=== PATIENT | female | born 1990 | race Caucasian/White ===

== ENCOUNTER 2020-01-19 06:30 | Inpatient (IN) | payer BC, SELFPAY ==
[2020-01-19] VITALS (100 sets, daily range): BP systolic 86–155; BP diastolic 53–104; PULSE 55–188; RESP 11–22; TEMP 36.6–37.9; O2SAT 94–100; BMI 28.0
--- NOTE | 2020-01-19 06:30 | LDADM ---
This patient, Janene Calvo, was admitted to Labor/Delivery/Recovery 104 on 01/19/20 at 06:30. Plans for labor, pain management and were discussed with patient. Patient/family oriented to hospital policies and general routines including ID bracelet, bed and alarms, visiting hours, pain management, procedures, bathroom and other care routines, personal items, smoking policy, room service/diet and guest tray routines, infant security routines, and visiting hours. Patient/Family are encouraged to report perceived risks to care and to ask questions if they do not understand what they are told or what they should do. See OBIX for further documentation.
[2020-01-19 07:04] LABS: Basophils Percent Auto 0.4 % (0.2-1.2); Eosinophils Absolute Auto 0.1 K/mm3 (0-0.3); Eosinophils Percent Auto 1.1 % (0-4.4); Hematocrit 39.8 % (37.0-47.0); Hemoglobin 13.4 g/dL (12.0-15.0); Immature Granulocyte Absolute 0.03 K/mm3 (0.00-0.031); Immature Granulocyte Percent A 0.4 % (0-0.5); Lymphocytes Absolute Auto 2.01 K/mm3 (0.9-3.2); Lymphocytes Percent Auto 27.6 % (18.3-44.2); Mean Corpuscular HGB Conc 33.7 g/dl (32-36); Mean Corpuscular Hemoglobin 30.2 pg (26-34); Mean Corpuscular Volume 89.6 fl (80-100); Monocytes Absolute Auto 0.5 K/mm3 (0.1-0.6); Monocytes Percent Auto 7.3 % (2.6-8.5); Neutrophils Absolute Auto 4.6 K/mm3 (1.3-6.7); Neutrophils Percent Auto 63.2 % (45.5-73.1); Platelet Count Result 288 k/mm3 (150-375); Red Blood Count 4.44 M/mm3 (4.2-5.4); Red Cell Distribution Width 13.5 % (11.5-14.5); White Blood Count 7.3 K/mm3 (4.5-10.0)
[2020-01-19] MEDS: LACTATED RINGERS 1,000 ML 999 ML IV CONT ×3 (07:09→09:02)
--- NOTE | 2020-01-19 08:23 | P.PNAN_ITS ---
Anes - Eval Pre Procedure Procedure: labor epidural Operation Date: 01/19/20 09:00 Proposed Procedures p Primary Section - Madhav Leigh MD Date/Time: 01/19/20 08:23 Pre Op Diagnosis: EXTERNAL VERSION Patient Data Age: 29 Gender: F Height: 1.68 m Weight: 79 kg Last Vital Signs Temp 36.8 C 01/19/20 07:00 Pulse 66 01/19/20 08:21 BP 125/81 01/19/20 08:21 Pulse Ox 100 01/19/20 08:22 Allergies Allergy/AdvReac Type Severity Reaction Status Date / Time No Known Allergies Allergy Verified 01/01/20 13:32 Home Medications Medication Instructions Recorded Confirmed Type PNV cmb#95-ferrous fumarate-FA 1 tablet PO DAILY 01/01/20 01/01/20 History [] levothyroxine 100 mcg PO DAILY 01/01/20 01/01/20 History Laboratory Tests 01/19/20 01/19/20 01/19/20 06:58 06:58 06:58 WBC 7.3 K/mm3 K/mm3 (4.5-10.0) RBC 4.44 M/mm3 M/mm3 (4.2-5.4) Hgb 13.4 g/dL g/dL (12.0-15.0) Hct 39.8 % % (37.0-47.0) MCV 89.6 fl fl (80-100) MCH 30.2 pg pg (26-34) MCHC 33.7 g/dl g/dl (32-36) RDW 13.5 % % (11.5-14.5) Plt Count 288 k/mm3 k/mm3 (150-375) MPV 11.0 fl H fl (7.4-10.4) Immature Gran % (Auto) 0.4 % % (0-0.5) Neut % (Auto) 63.2 % % (45.5-73.1) Lymph % (Auto) 27.6 % % (18.3-44.2) [place] % (Auto) 7.3 % % (2.6-8.5) Eos % (Auto) 1.1 % % (0-4.4) Baso % (Auto) 0.4 % % (0.2-1.2) Lymph # (Auto) 2.01 K/mm3 K/mm3 (0.9-3.2) [place] # (Auto) 0.5 K/mm3 K/mm3 (0.1-0.6) Eos # (Auto) 0.1 K/mm3 K/mm3 (0-0.3) Baso # (Auto) 0.0 K/mm3 K/mm3 (0.0-0.1) Abs Immat Gran (auto) 0.03 K/mm3 K/mm3 (0.00-0.031) Absolute Neuts (auto) 4.6 K/mm3 K/mm3 (1.3-6.7) Absolute Nucleated RBC 0.0 K/mm3 K/mm3 (0.0-0.012) Nucleated RBC % 0.0 % % (0.0-0.2) RPR Pending Blood Type O Positive Antibody Screen Negative Patient hx anesthesia problems: none Family hx anesthesia problems: none PMFSH Past Medical History Medical History (Updated 01/19/20 @ 08:25 by Cheryl Harrington CRNA) Hypothyroid Family History Family History Grandparent FH: heart attack Social History Social History Smoking status: Never smoker Substance use: never Spiritual care concerns: No Exam Day of Procedure 01/19/20 08:23 Patient weight: normal Heart: regular rate and rhythm Lungs: normal air movement Airway: Mallampati scale class 1 Neurological: alert and oriented
[2020-01-19] MEDS: TERBUTALINE SULFATE 1 MG/ML VIAL 0.25 MG SUB-Q (08:49)
--- NOTE | 2020-01-19 09:04 | PM.IMHP ---
H&P: HPI History of Present Illness Chief complaint: EXTERNAL VERSION Narrative: 29 y/o at 39 4/7 weeks, known to have breech presentation, here for ECV and possible induction of labor vs primary . GBS neg. otherwise complicated by hypothyroidism. Review of Systems Review of Systems: All systems reviewed & are unremarkable except as noted in HPI and below PMFSH Past Medical History Medical History Hypothyroid Family History Family History Grandparent FH: heart attack Social History Social History Smoking status: Never smoker Substance use: never Spiritual care concerns: No Comments Past OB History: Early SAB, no D&C. Past BRICK TESTER: Menarche at 10 with menses every 5-6 weeks lasting 5 days each. Meds Home Medications and Allergies Home Medications Medication Instructions Recorded Confirmed Type PNV cmb#95-ferrous fumarate-FA 1 tablet PO DAILY 01/01/20 01/01/20 History [] levothyroxine 100 mcg PO DAILY 01/01/20 01/01/20 History Allergies Allergy/AdvReac Type Severity Reaction Status Date / Time No Known Allergies Allergy Verified 01/01/20 13:32 Vital Signs Vital Signs - 24 hr 01/19/20 07:00 01/19/20 07:09 01/19/20 07:25 Temperature 36.8 C Pulse Rate 60 67 Blood Pressure 126/81 132/93 H Pulse Oximetry 01/19/20 07:31 01/19/20 07:46 01/19/20 07:57 Temperature Pulse Rate 67 64 73 Blood Pressure 139/94 H 134/90 149/90 H Pulse Oximetry 100 01/19/20 08:01 01/19/20 08:02 01/19/20 08:05 Temperature Pulse Rate 75 63 Blood Pressure 140/104 H 138/95 H Pulse Oximetry 100 01/19/20 08:07 01/19/20 08:09 01/19/20 08:10 Temperature Pulse Rate 71 62 Blood Pressure 139/95 H 138/81 Pulse Oximetry 100 01/19/20 08:11 01/19/20 08:12 01/19/20 08:13 Temperature Pulse Rate 64 72 Blood Pressure 129/85 124/88 Pulse Oximetry 100 01/19/20 08:16 01/19/20 08:17 01/19/20 08:18 Temperature Pulse Rate 66 67 Blood Pressure 132/78 132/89 Pulse Oximetry 100 01/19/20 08:21 01/19/20 08:22 01/19/20 08:23 Temperature Pulse Rate 66 65 Blood Pressure 125/81 130/79 Pulse Oximetry 100 01/19/20 08:26 01/19/20 08:27 01/19/20 08:28 Temperature Pulse Rate 68 68 Blood Pressure 131/73 129/85 Pulse Oximetry 100 01/19/20 08:31 01/19/20 08:32 01/19/20 08:35 Temperature Pulse Rate 66 63 Blood Pressure 132/86 126/73 Pulse Oximetry 100 01/19/20 08:36 01/19/20 08:37 01/19/20 08:39 Temperature Pulse Rate 61 66 Blood Pressure 130/79 127/63 Pulse Oximetry 100 01/19/20 08:41 01/19/20 08:42 01/19/20 08:43 Temperature Pulse Rate 78 60 Blood Pressure 120/75 124/82 Pulse Oximetry 100 01/19/20 08:46 01/19/20 08:47 01/19/20 08:52 Temperature Pulse Rate 63 Blood Pressure 127/79 Pulse Oximetry 100 100 01/19/20 08:57 01/19/20 09:01 Temperature Pulse Rate 100 Blood Pressure 126/74 Pulse Oximetry 100 100 Exam Const: Orientation/consciousness: patient oriented x3 Other: Well-developed, well-nourished female in no acute distress. Neck: Thyroid: thyroid normal Lymphatic: no lymphadenopathy noted (in neck, axilla or inguinal nodes) Resp: Effort & Inspection: normal respiratory effort Auscultation: clear to auscultation bilaterally Cardio: Rate: regular rate Rhythm: regular rhythm Heart sounds: S1 normal heart sound present and S2 normal heart sound present GI: Other: ABD: Soft, nontender, gravid. Breech presentation. NST reactive. TOCO: no contractions. Imaging: Bedside ultrasound exam by me confirms kandi breech presentation with back on the maternal left. : General: Yes no CVA tenderness Other: Cervix closed. Back/Spine/Pelvis: Back: no CVA tenderness Skin: General s
--- NOTE | 2020-01-19 09:08 | WPDANESEFPP ---
Anes - Eval Final PreProcedure Day of Procedure 01/19/20 09:08 Patient weight: overweight Heart: regular rate and rhythm Lungs: clear to auscultation Airway: Mallampati scale class II Neurological: alert and oriented Last oral intake: >/= 8 hours ASA classification: II Emergent: no Anesthetic plan: proceed Anesthesia type and monitoring: regional epidural and standard monitoring Other findings: Epid for C/S Informed Consent: The patient's anesthetic plan and its attendant risks and benefits were discussed with the patient/family/POA. Questions were solicited and answers provided to the satisfaction of the patient/family/POA.
--- NOTE | 2020-01-19 10:07 | PM.OBPRVD ---
OB - Delivery Note Procedure Delivery date: 01/19/20 Procedure: Procedures Operation Date: 01/19/20 09:00 <No data on this case meets the specified criteria> 1) Attempted external cephalic version under ultrasound guidance 2) Primary low transverse delivery Delivery monitor: external FHT and external uterine Specimen: Yes (cord blood) Estimated blood loss (mL): 715 Anesthesia type: Epidural Disposition: PACU Complications: None Narrative: The patient presented to L&D for scheduled external cephalic version. Epidural was placed. Bedside ultrasound performed by ar confirmed kandi breech presentation with the back on the maternal left. The placenta was anterior, fundal, grade 3. AFV appeared adequate. She received terbutaline 0.25mg IM x 1. ECV was attempted, elevating the breech out of the maternal pelvis and first trying to effect a forward (counterclockwise) somersault, then a reverse (clockwise). No significant movement of the position resulted, and a significant decrease in the FHR was noted on ultrsound. The procedure was terminated and the FHR recovered. She was then taken to the operating room where she was prepared and draped in the usual sterile fashion in dorsal supine position with a leftward tilt. She received cefazolin preoperatively. Epidural anesthesia was found to be adequate. A Pfannenstiel skin incision was made with the scalpel and was carried through to the underlying layer of the fascia. The fascia was incised in the midline and the incision was extended laterally. The fascia was dissected free of the underlying rectus muscles. The rectus muscles were in the midline. The peritoneum was identified, tented up and entered sharply. The peritoneal incision was extended superiorly and inferiorly with good visualization of the bladder. The bladder blade was placed. The vesicouterine peritoneum was identified, tented up and entered sharply. The incision was extended laterally and the bladder flap was developed. The bladder blade was replaced. The uterus was then incised sharply in a transverse fashion along the lower uterine segment. The incision was extended laterally. The infant's breech was delivered atraumatically to the sterile field to the level of the scapulae. The arms were swept across the chest and delivered. The head was gently flexed and easily delivered. A loose nuchal cord was noted, and the 3-vessel cord was noted to be short. The cord was reduced. The nose and mouth were bulb suctioned. After a delay, the cord was clamped and cut. The was handed off the field. Cord blood was collected. The placenta was removed manually and was passed off the field. The uterus was exteriorized and cleared of all clots and debris. The uterine incision was reapproximated using 0 Monocryl in a running, locked fashion. A second, imbricating layer of the same suture was placed. The bladder flap was treated with Hemaderm. Excellent hemostasis resulted as did excellent reapproximation of the normal anatomy. The uterus was returned the abdomen. The pelvis was irrigated copiously with warmed normal saline. Rigorous hemostasis was assured. The fascial layer was reapproximated using 0 Vicryl in a running fashion. The skin was closed with a running, subcuticular stitch of 4 0 Vicryl. Dermaflex was applied externally. Sponge, lap, needle and instrument counts were correct. The patient was taken to the recovery room in stable condition. The went to the nursery in stable condition. I was present and scrubbed the entire procedure. [place] Baby Date of : 01/19/20 Time of : 09:39 Weeks of gestation at delivery: 39 gender: Male Weight (pounds): 6 Weight (ounces): 3 presentation: kandi breech Placenta delivery description: Manual Removal and Normal Configuration cord vessel description: 3 Vessels and Nuchal Cord score one minute: 9 cao
--- NOTE | 2020-01-19 10:14 | PM.OBDSVD ---
DS: Diagnosis Discharge Diagnosis (1) Term : Code(s): Z34.90 - Encounter for supervision of normal , unspecified, unspecified trimester Status: Acute (2) Breech presentation: Code(s): O32.1XX0 - Maternal care for breech presentation, not applicable or unspecified Status: Acute OB - DS: Summary OB Procedures : NST, Ultrasound and External version OB Procedures Intrapartum: low cervical, transverse OB Procedures: : None Peripartum Data Procedures: Procedures Operation Date: 01/19/20 09:00 <No data on this case meets the specified criteria> 1) Attempted external cephalic version under ultrasound guidance. 2) Primary LTCS. DS: Data Data Completed and Pending Labs on day of discharge: Labs from last 24 hours 01/19/20 01/19/20 01/19/20 06:58 06:58 06:58 WBC 7.3 RBC 4.44 Hgb 13.4 Hct 39.8 MCV 89.6 MCH 30.2 MCHC 33.7 RDW 13.5 Plt Count 288 MPV 11.0 H Immature Gran % (Auto) 0.4 Neut % (Auto) 63.2 Lymph % (Auto) 27.6 [place] % (Auto) 7.3 Eos % (Auto) 1.1 Baso % (Auto) 0.4 Lymph # (Auto) 2.01 [place] # (Auto) 0.5 Eos # (Auto) 0.1 Baso # (Auto) 0.0 Abs Immat Gran (auto) 0.03 Absolute Neuts (auto) 4.6 Absolute Nucleated RBC 0.0 Nucleated RBC % 0.0 RPR Pending Blood Type O Positive Antibody Screen Negative Discharge Plan Discharge Attending physician on discharge: Madhav Leigh Consulting providers: Curry Aiken Discharging Clinician: Madhav Leigh Patient Disposition: Home, Self-Care Activity: may shower, may drive after 2 weeks and pelvic rest Diet: regular Wound Care Instructions: incision open to air Discharge Instructions: Education: Mom and Baby Guide Given to: Mother Follow-Up: Call your delivering provider's office for an appointment to be seen in: 4 Weeks Mom and baby should come to the [facility] for the follow-up appointment. Appointment Date/Time: Friday, January 24, 2020 at 11:00 am What to expect at your follow-up visit: Blood Pressure Check Physical Assessment Call [phone] if you are unable to keep your appointment time. BREAST CARE: 1. Wear a snug supportive bra. 2. For engorgement discomfort: Breast Feeding: A. Apply warm moist washcloths B. Express milk as needed to relieve engorgement C. Wear loose clothing 3. For sore nipples: A. Identify correct latch-on B. Apply warm moist washcloths before and after nursing C. Air dry nipples after nursing D. May apply Lansinoh cream to nipples ABDOMINAL INCISION: (if applicable) 1. Allow incision to air dry 2. Do NOT use lotions for powders on your incision 3. When showering, allow soap and water to run over the incision, but do not wash incision EPISIOTOMY/PERINEAL CARE: 1. Change your pad frequently throughout the day 2. You may take sitz baths several times a day (fill your bathtub with warm water and soak for 20 minutes.) Do NOT bathe in the water 3. No tub baths until seen by your physician - You may shower ACTIVITY: 1. Rest as much as possible. 2. Do not exercise or lift anything heavier than your baby (such as laundry or other children.) 3. Avoid stairs or driving as much as possible. 4. Do not put anything into the vagina. No douching, tampons, or sexual activity until seen by physician. NOTIFY PHYSICIAN IF YOU HAVE ANY QUESTIONS OR IF ANY OF THE FOLLOWING SYMPTOMS OCCUR: 1. If your incision becomes red, swollen, or more painful than what you have experienced in the hospital. 2. If your vaginal bleeding becomes foul smelling. 3. If your vaginal bleeding becomes more heavy than a period or if your bleeding changes from pink to bright red. However, you may pass an occasional walnut-sized clot once or twice for the first week po
--- NOTE | 2020-01-19 12:30 | PC.NURSE ---
PT arrived on unit via stretcher accompanied by spouse and and taken to room 285. PT transferred to bed via maxi air without difficulty. PT introductions made and plan of care discussed per post op c section, pain management, breast feeding, daily care activities. PT oriented to room and surroundings. Welcome packet reviewed and discussed and pt verbalized understanding.
[2020-01-19] MEDS: SIMETHICONE 80 MG TAB.CHEW PO ×2 (13:18→17:21)
[2020-01-19] MEDS: LANOLIN (LANSINOH) 7.5 GM CREAM 1 APPLIC TOPICAL (13:18)
[2020-01-19] MEDS: OXYTOCIN 30 UNITS/NS 500 ML 30 UNITS/500 ML BAG 125 UNITS IV CONT (13:19)
[2020-01-19] MEDS: KETOROLAC 30 MG/ML VIAL (*BKC) IV PUSH (13:24)
--- NOTE | 2020-01-19 13:50 | PC.NURSE ---
Mother called out for assist with feeding. Consulted with patient, reviewed feeding cues, frequencies, duration of feedings, feeding elimination flow sheet, and signs of adequate intake. Demonstrated stimulation techniques to wake for feeding. Assisted with to breast. Reviewed positioning/alignment in cross cradle, holding breast in U hold and guided asymmetrical latch on. Discussed rational for each. Mother's left nipple has less profile than right. Suggested mother roll out nipple and self express before attempting latch. Infant was able to latch correctly within a few attempts. nursed eagerly, with steady draws and occasional swallowing noted. Reviewed signs of a correct latch, effective nursing and suck swallow ratio. was able to maintain latch without discomfort to mother. Nipple care reviewed. Instructed mother to call out for RN assistance if she is unable to latch for feeding or she has discomfort with nursing. Instructed feeding should be initiated three hours from start of last feeding or if feeding cues are noted before. Mother voiced understanding of information shared.
[2020-01-19] MEDS: DEXTROSE 5%/0.45% SOD CHL 1,000 ML 125 ML IV CONT (16:43)
[2020-01-19] MEDS: DOCUSATE SODIUM 100 MG CAPSULE PO (17:21)
[2020-01-19] MEDS: IBUPROFEN 600 MG TABLET PO (21:44)
[2020-01-19] MEDS: MULTIVIT/MIN/PREN/FOL AC/IRON TABLET 1 TAB PO (21:57)
[2020-01-20 04:35] VITALS: BP 114/67; PULSE 71; RESP 17; TEMP 37.1
[2020-01-20 05:26] LABS: Basophils Percent Auto 0.2 % (0.2-1.2); Eosinophils Percent Auto 0.2 % (0-4.4); Hemoglobin 11.2 g/dL (12.0-15.0); Immature Granulocyte Absolute 0.05 K/mm3 (0.00-0.031); Immature Granulocyte Percent A 0.4 % (0-0.5); Lymphocytes Absolute Auto 1.28 K/mm3 (0.9-3.2); Lymphocytes Percent Auto 10.4 % (18.3-44.2); Mean Corpuscular HGB Conc 32.9 g/dl (32-36); Mean Corpuscular Hemoglobin 30.2 pg (26-34); Mean Corpuscular Volume 91.6 fl (80-100); Mean Platelet Volume 10.7 fl (7.4-10.4); Monocytes Absolute Auto 0.5 K/mm3 (0.1-0.6); Monocytes Percent Auto 4.4 % (2.6-8.5); Neutrophils Absolute Auto 10.4 K/mm3 (1.3-6.7); Neutrophils Percent Auto 84.4 % (45.5-73.1); Platelet Count Result 206 k/mm3 (150-375); Red Blood Count 3.71 M/mm3 (4.2-5.4); Red Cell Distribution Width 13.9 % (11.5-14.5); White Blood Count 12.3 K/mm3 (4.5-10.0)
[2020-01-20 06:54] LABS: Rapid Plasma Reagin Non-Reactive (NonReactive)
[2020-01-20] MEDS: LEVOTHYROXINE SODIUM 100 MCG TABLET PO (07:30)
[2020-01-20] MEDS: IBUPROFEN 600 MG TABLET PO ×3 (07:30→22:09)
[2020-01-20 08:34] VITALS: BP 113/77; PULSE 72; RESP 18; TEMP 37.3; O2SAT 95
--- NOTE | 2020-01-20 12:30 | PC.NURSE ---
Consulted with patient, parents report infant has been on and off during feedings. appears to be eager to feed, when put to breast he is sleepy and does not maintain latch more than a few sucks and will eagerly repeat several times and then fall asleep. Parents are concerned with feeding status. Mother has bruising noted to both areolas from incorrect latching. Reviewed feeding cues, frequencies, duration of feedings, feeding elimination flow sheet, and signs of adequate intake. Demonstrated stimulation techniques to wake infant for feeding. Assisted with infant to breast. Reviewed positioning/alignment in cross cradle, holding breast in U hold and guided asymmetrical latch on. Discussed rational for each. was eagerly making attempts to latch and was able to latch correctly. will draw part of nipple in and will suckle for a short burst, nipple will slip out and is sucking on his tongue. Mother reports some discomfort with feeding. Several attempts made without a correct latch. Offered and explained the Latch Assist and Nipple shield. Mother is willing to attempt. Instructions given on application and cleaning of shield/latch assist. Discussed nipple shield precautions and possible complications. Patient able to return demonstration on proper application of shield. Discussed the need to initiate pumping if infant continues to nurse with the shield. Patient verbalizes understanding. With shield in place, infant was able to latch correctly with tongue down. Infant nursed eagerly, with steady draws and occasional swallowing noted. Reviewed signs of a correct latch, effective nursing and suck swallow ratio. Infant was able to maintain latch without discomfort to mother. Nipple care reviewed. Instructed mother to call out for RN assistance if she is unable to latch for feeding or she has discomfort with nursing. Instructed feeding should be initiated three hours from start of last feeding or if feeding cues are noted before. Mother voiced understanding of information shared.
--- NOTE | 2020-01-20 12:36 | P.PNOB_ITS ---
OB - PN: Subj Subjective Date/time seen: 01/20/20 12:36 Narrative: Pain OK. Tolerating diet. Would like circumcision for son. OB - PN: Obj Data Labs CBC & Chem 7: 01/20/20 04:41 Labs: Laboratory Results - last 24 hr 01/19/20 01/20/20 06:58 04:41 WBC 12.3 H RBC 3.71 L Hgb 11.2 L Hct 34.0 L MCV 91.6 MCH 30.2 MCHC 32.9 RDW 13.9 Plt Count 206 MPV 10.7 H Immature Gran % (Auto) 0.4 Neut % (Auto) 84.4 H Lymph % (Auto) 10.4 L [place] % (Auto) 4.4 Eos % (Auto) 0.2 Baso % (Auto) 0.2 Lymph # (Auto) 1.28 [place] # (Auto) 0.5 Eos # (Auto) 0.0 Baso # (Auto) 0.0 Abs Immat Gran (auto) 0.05 H Absolute Neuts (auto) 10.4 H Absolute Nucleated RBC 0.0 Nucleated RBC % 0.0 RPR Non-reactive OB - PN A/P Plan Comments: A: POD#1, doing well. P: Routine care. Reviewed circ. Exam Psych: Other: AVSS I/O OK ABD soft, nontender, fundus firm. Incision c/d/i. EXT nontender
--- NOTE | 2020-01-20 14:03 | WPDANLDNPN2 ---
Anes-Prog Note L&D-Neuraxial Date/Time: 01/20/20 14:03 Neuraxial medications: epidural PF morphine Opiod-related complaints: none Patient feedback: Patient satisfied with post-operative pain management.
[2020-01-20] MEDS: DOCUSATE SODIUM 100 MG CAPSULE PO (18:43)
[2020-01-20 18:55] VITALS: BP 113/79; PULSE 90; RESP 12
[2020-01-20 20:15] VITALS: TEMP 36.9
[2020-01-20] MEDS: MULTIVIT/MIN/PREN/FOL AC/IRON TABLET 1 TAB PO (22:09)
[2020-01-21] MEDS: IBUPROFEN 600 MG TABLET PO ×3 (05:46→20:12)
[2020-01-21] MEDS: SIMETHICONE 80 MG TAB.CHEW PO (06:26)
[2020-01-21] MEDS: LEVOTHYROXINE SODIUM 100 MCG TABLET PO (06:27)
--- NOTE | 2020-01-21 07:08 | P.PNOB_ITS ---
OB - PN: Subj Subjective Date/time seen: 01/21/20 07:08 Patient comments: no complaints and pain well controlled baby status: doing well and nursing well OB - PN: Obj Data Labs CBC & Chem 7: 01/20/20 04:41 OB - PN A/P Plan day: 2 Plan: routine care Time Spent With Patient Time: Total time spent is greater than 50% in coordination of care (as pete monahan) at patient's floor/unit and/or counseling patient: Time with patient: less than 15 minutes Review of Systems Review of Systems: All systems reviewed & are unremarkable except as noted in HPI and below Exam Const: General: no acute distress Eyes: General: appearance normal, both eyes and all related structures Neck: Neck: supple and no JVD Thyroid: thyroid normal Resp: Effort & Inspection: normal respiratory effort Auscultation: clear to auscultation bilaterally Cardio: Rate: regular rate Rhythm: regular rhythm GI: Inspection: normal to inspection and incision (cdi) : General: Yes bladder normal to palpation External Female Exam: normal external appearance Speculum Exam - Vagina: normal vaginal discharge and No vaginal bleeding Speculum Exam - Cervix: nontender Bimanual exam- vagina & uterus: bladder normal to palpation and No Cervical tenderness present OB/external & speculum: No vaginal bleeding Skin: General skin exam: no rashes or lesions noted Extrem: General: normal to inspection and no edema Psych: Mental Status: mental status grossly normal Affect: normal affect
[2020-01-21 08:20] VITALS: BP 126/80; PULSE 76; RESP 18; TEMP 36.9
--- NOTE | 2020-01-21 09:30 | PC.NURSE ---
Consulted with patient, mother reports infant is latching without nipple shield at times. Mother will initiate feed with shield and remove after several minutes of nursing. able to latch correctly. nursed eagerly, with steady draws and frequent swallowing noted. Reviewed signs of a correct latch, effective nursing and suck swallow ratio. Infant was able to maintain latch without discomfort to mother. Nipple care reviewed. Reviewed feeding cues, frequencies, duration of feedings, feeding elimination flow sheet, and signs of adequate intake. Demonstrated stimulation techniques to wake infant for feeding. Reviewed positioning/alignment, holding breast and asymmetrical latch on. Instructed mother to call out for RN assistance if she is unable to latch infant for feeding or she has discomfort with nursing. Instructed feeding should be initiated three hours from start of last feeding or if feeding cues are noted before. Mother voiced understanding of information shared. Mother states she feels confident to continue effective at home. Reviewed transition to breast milk, signs of adequate intake, and engorgement/relief. Instructed to call ICP if intake/output less than required. Reviewed regular medications mother is taking. Information provided per Mela. Reviewed community resources on the [facility] website and in the Mom/Baby guide. Information on outpatient services provided. Mother has no further questions at this time.
[2020-01-21] MEDS: DOCUSATE SODIUM 100 MG CAPSULE PO ×2 (09:44→17:07)
[2020-01-21 20:10] VITALS: BP 127/86; PULSE 87; RESP 16; TEMP 36.8; O2SAT 100
[2020-01-21] MEDS: MULTIVIT/MIN/PREN/FOL AC/IRON TABLET 1 TAB PO (20:12)
--- NOTE | 2020-01-21 21:28 | PC.NURSE ---
Patient viewed the discharge video Mother & Baby Care, The First Two Weeks . Patient was given the opportunity and encouraged to ask questions. Patient verbalized understanding of information shared and has been given the mother/baby guide for home reference.
--- NOTE | 2020-01-22 07:26 | PM.OBDSVD ---
DS: Diagnosis Admitting Diagnosis Admitting Diagnosis: Maternal care for breech presentation, not applicable or unspecified OB - DS: Summary OB Procedures : None OB Procedures Intrapartum: OB Procedures: : None Peripartum Data Infant Delivery Method: Section Procedures: Procedures Operation Date: 01/19/20 09:00 Actual Procedures Side Surgeon p Primary Section Not Applicable Madhav Leigh MD complications: none Status at Discharge Functional status at discharge: independent ambulation Overall status at discharge: patient is progressing back to baseline Time Spent with Patient Time attestation: Total time spent providing and/or coordinating discharge services: Time spent: Less than 30 minutes Exam Const: General: comfortable and no acute distress Resp: Effort & Inspection: normal respiratory effort Auscultation: clear to auscultation bilaterally Cardio: Rate: regular rate GI: Inspection: non-distended GI Palp: Yes Soft to palpation, No Firmness to palpation present (GI), Yes Tenderness to palpation present (GI) (mild tenderness over incision ) and No Guarding due to palpation present (GI) Auscultation: normal bowel sounds Psych: Appearance: grossly normal Mental Status: mental status grossly normal Discharge Plan Discharge Attending physician on discharge: Madhav Leigh Discharging Clinician: Madhav Leigh Patient Disposition: Home, Self-Care Activity: may shower, may drive after 2 weeks and pelvic rest Diet: regular Wound Care Instructions: incision open to air Discharge Instructions: Call or return if temperature above 100.4? F, increased abdominal pain, increased vaginal bleeding or any new problems. Stand Alone Forms: General Discharge Information Follow-up/Referrals: Madhav Leigh MD [Physician] - (4 weeks) Discharge Medications: New hydrocodone-acetaminophen [[place]] 5-325 mg tablet 1 - 2 tablet PO Q6H PRN (Reason: pain) Qty: 30 RF: 0 ibuprofen 600 mg tablet 600 mg PO Q6H PRN (Reason: cramps) Qty: 30 RF: 0 Lpb-N-Bubkmk Cream 1 applic topical PRN PRN (Reason: Sore Nipples) Qty: 1 RF: 0 Continued levothyroxine 100 mcg Tablet 100 mcg PO DAILY RF: 0 PNV cmb#95-ferrous fumarate-FA [] 28 mg iron- 800 mcg Tablet 1 tablet PO DAILY RF: 0 Date of admission: 01/19/20 06:30 Primary Care Provider: UNKNOWN,DOCTOR Admitting Provider: Madhav Leigh Attending physician on admission: Madhav Leigh
[2020-01-22 08:30] VITALS: BP 125/79; PULSE 72; RESP 16; TEMP 36.9; O2SAT 97
[2020-01-22] MEDS: DOCUSATE SODIUM 100 MG CAPSULE PO (09:30)
[2020-01-22] MEDS: MULTIVIT/MIN/PREN/FOL AC/IRON TABLET 1 TAB PO (09:32)
[2020-01-22] MEDS: IBUPROFEN 600 MG TABLET PO (09:32)
[2020-01-24 10:48] VITALS: BP 135/94; PULSE 84; RESP 16; TEMP 37; O2SAT 99
== END 2020-01-22 11:17 | disposition home or self-care (01) | DRG 788 ==
LOC: ANHLDR 10:16 → ANHOB2 01-20 11:19 → ANHLDR 01-25 07:32 → ANHOB2 01-25 07:32
PROVIDERS: Admitting Provider Obstetrics & Gynecology; Visit Provider Student in an Organized Health Care Education/Training Program
PROC: 10D00Z1 Extraction of Products of Conception, Low, Open Approach (ICD-10-PCS; CPT 59514; principal; 2020-01-19 09:00)
DX: O64.1XX0 Obstructed labor due to breech presentation, not applicable or unspecified (principal); Z3A.39 39 weeks gestation of pregnancy; Z37.0 Single live birth; O69.81X0 Labor and delivery complicated by cord around neck, without compression, not applicable or unspecified
CPT/HCPCS: 36415; 85025; 86592; 86850; 86900; 86901; A9270; J0131; J1200; J1885; J2405; J2590; J2795; J3105; J7120

== ENCOUNTER 2021-12-03 11:54 | Outpatient (CLI) | payer BC, SELFPAY ==
[2021-12-03 12:14] LABS: Hematocrit 40.6 % (37.0-47.0); Hemoglobin 13.5 g/dL (12.0-15.0); Mean Corpuscular HGB Conc 33.3 g/dl (32-36); Mean Corpuscular Volume 93.1 fl (80-100); Mean Platelet Volume 10.6 fl (7.4-10.4); Platelet Count Result 267 k/mm3 (150-375); Red Blood Count 4.36 M/mm3 (4.2-5.4); Red Cell Distribution Width 13.8 % (11.5-14.5); White Blood Count 7.1 K/mm3 (4.5-10.0)
[2021-12-04 09:21] LABS: Rapid Plasma Reagin Non-Reactive (NonReactive)
== END 2021-12-03 11:55 | disposition home or self-care (01) ==
PROVIDERS: PCP Family Medicine; Visit Provider Obstetrics & Gynecology
DX: Z01.818 Encounter for other preprocedural examination (principal)
CPT/HCPCS: 36415; 85027; 86592; 86850; 86900; 86901

== ENCOUNTER 2021-12-04 09:38 | Inpatient (IN) | payer BC, SELFPAY ==
[2021-12-04] VITALS (59 sets, daily range): BP systolic 87–162; BP diastolic 53–137; PULSE 48–145; RESP 11–18; TEMP 36.1–36.6; O2SAT 96–100; BMI 27.3
--- NOTE | 2021-12-04 10:46 | LDADM ---
This patient, Janene Calvo, was admitted to Labor/Delivery/Recovery 118 on 12/04/21 at 09:38. Plans for section/ labor, pain management and were discussed with patient. Patient/family oriented to hospital policies and general routines including ID bracelet, bed and alarms, visiting hours, pain management, procedures, bathroom and other care routines, personal items, smoking policy, room service/diet and guest tray routines, infant security routines, and visiting hours. Patient/Family are encouraged to report perceived risks to care and to ask questions if they do not understand what they are told or what they should do. See [facility]BIX for further documentation.
[2021-12-04] MEDS: LACTATED RINGERS 250 ML 999 ML IVPB (10:50)
[2021-12-04] MEDS: LACTATED RINGERS 1,000 ML 125 ML IV CONT (11:41)
--- NOTE | 2021-12-04 12:33 | P.HP_ITS ---
H&P: HPI History of Present Illness Date/Time: 12/04/21 12:33 31 y/o at 40 1/7 weeks with prior . Had scheduled repeat CS for today. Had some contractions overnight. But no significant cervical change, so she has decided to proceed with repeat . GBS neg. Chief Complaint: Here for c section Review of Systems Review of Systems: All systems reviewed & are unremarkable except as noted in HPI and below PMFSH Past Medical History Medical History Hypothyroid Surgical History Surgical History (Updated 12/04/21 @ 12:35 by Madhav Leigh MD) History of delivery Family History Family History Grandparent FH: heart attack Social History Social History Smoking status: Never smoker Substance use: never Spiritual care concerns: No Meds Home Medications and Allergies Home Medications Medication Instructions Recorded Confirmed Type PNV cmb#95-ferrous fumarate-FA 1 tablet PO DAILY 01/01/20 12/04/21 History [] levothyroxine 112 mcg PO DAILY 01/01/20 12/04/21 History Allergies Allergy/AdvReac Type Severity Reaction Status Date / Time No Known Allergies Allergy Verified 01/01/20 13:32 Vital Signs Vital Signs - 24 hr 12/04/21 10:23 12/04/21 10:30 Temperature 36.6 C Pulse Rate 69 Blood Pressure 137/80 Exam Const: Orientation/consciousness: patient oriented x3 Other: Well- developed, well-nourished female in no acute distress. Neck: Thyroid: thyroid normal Lymphatic: no lymphadenopathy noted (in neck, axilla or inguinal nodes) Resp: Effort & Inspection: normal respiratory effort Auscultation: clear to auscultation bilaterally Cardio: Rate: regular rate Rhythm: regular rhythm Heart sounds: S1 normal heart sound present and S2 normal heart sound present GI: Other: ABD: Soft, nontender, nondistended, gravid. NST reactive. TOCO contractions irregularly. No guarding or rebound tenderness. No hepatosplenomegaly. Bedside ultrasound by me shows cephalic presentation. : General: Yes no CVA tenderness Other: Cervix FT/80/-2, unchanged. Back/Spine/Pelvis: Back: no CVA tenderness Skin: General skin exam: normal color and no rashes or lesions noted Neuro: General: patient oriented x3 Extrem: Other: Extremities: nontender with no edema Psych: Mental Status: mental status grossly normal Affect: normal affect Assessment and Plan Assessment and plan (1) History of delivery: Code(s): Z98.891 - History of uterine scar from previous surgery Status: Acute Assessment and Plan: A: IUP at 40 1/7 weeks with prior , desires repeat. P: Offered repeat . She understands risks of surgery to include risks of anesthesia, risks of pain, infection, bleeding, blood products, thromboembolic phenomena and damage to adjacent structures such as bowel, bladder, ureters, blood vessels and nerves. She understands all these risks and elects to proceed with surgery.
--- NOTE | 2021-12-04 12:36 | WPDHPUPDATE1 ---
History and Physical Update Update Date/Time: 12/04/21 12:36 History and Physical has been reviewed, including an updated exam of the patient. There are NO changes in the patient's condition. Risks, benefits, and alternatives have been discussed and questions answered. Patient agrees to proceed with procedure.
--- NOTE | 2021-12-04 12:38 | WPDANESEPPF ---
Anes - Initial Pre Proc Eval Procedure: Operation Date: 12/04/21 12:00 Proposed Procedures p Repeat Section - Madhav Leigh MD Date/Time: 12/04/21 12:38 Surgeon: Madhav Leigh MD Pre Op Diagnosis: C/Section Patient Data Age: 31 Gender: F Height: 1.68 m Weight: 77 kg Last Vital Signs Temp 36.6 C 12/04/21 10:30 Pulse 69 12/04/21 10:23 BP 137/80 12/04/21 10:23 Allergies Allergy/AdvReac Type Severity Reaction Status Date / Time No Known Allergies Allergy Verified 01/01/20 13:32 Home Medications Medication Instructions Recorded Confirmed Type PNV cmb#95-ferrous fumarate-FA 1 tablet PO DAILY 01/01/20 12/04/21 History [] levothyroxine 112 mcg PO DAILY 01/01/20 12/04/21 History Patient hx anesthesia problems: none Family hx anesthesia problems: none Results Review: All pre-operative results and documents have been reviewed as part of the pre-operative evaluation. [facility] Past Medical History Medical History Hypothyroid Surgical History Surgical History History of delivery Family History Family History Grandparent FH: heart attack Social History Social History Smoking status: Never smoker Substance use: never Spiritual care concerns: No Anes - Eval Final PreProcedure Day of Procedure 12/04/21 12:38 Patient weight: normal Heart: regular rate and rhythm Lungs: clear to auscultation Airway: Mallampati scale class II Neurological: alert and oriented Last oral intake: >/= 8 hours ASA classification: II Emergent: no Anesthetic plan: proceed Anesthesia type and monitoring: regional spinal and standard monitoring Results Review: All pre-operative results and documents have been reviewed as part of the pre-operative evaluation. Informed Consent: The patient's anesthetic plan and its attendant risks and benefits were discussed with the patient/family/POA. Questions were solicited and answers provided to the satisfaction of the patient/family/POA.
[2021-12-04] MEDS: ceFAZolin 2 GM/D5W 50 ML 2 GM/50 ML BAG IVPB (12:52)
--- NOTE | 2021-12-04 13:51 | P.PCNOB_ITS ---
OB - Delivery Note Procedure Delivery date: 12/04/21 Procedure: Procedures Operation Date: 12/04/21 12:00 <No data on this case meets the specified criteria> Repeat low transverse delivery Delivery monitor: External FHT and External Uterine Route of delivery: Specimen: Yes (cord blood) Quantitative Blood Loss (ml): 240 Anesthesia type: Spinal Disposition: PACU Complications: None Narrative: The patient was taken to the operating room where she was prepared and draped in the usual sterile fashion in dorsal supine position with a leftward tilt. She received cefazolin preoperatively. Spinal anesthesia was found to be adequate. A Pfannenstiel skin incision was made along the previous scar line and was carried through to the underlying layer of the fascia. The fascia was incised in the midline and the incision was extended laterally. The fascia was dissected free of the underlying rectus muscles. The rectus muscles were in the midline. The peritoneum was identified, tented up and entered sharply. The peritoneal incision was extended superiorly and inferiorly with good visualization of the bladder. The bladder blade was placed. The vesicouterine peritoneum was identified, tented up and entered sharply. The incision was extended laterally and the bladder flap was developed. The bladder blade was replaced. The uterus was then incised sharply in a transverse fashion along the lower uterine segment. The incision was extended laterally. The infant's head was delivered atraumatically to the sterile field, followed by the body. The nose and mouth were bulb suctioned. After a delay, the cord was clamped and cut. The was handed off the field. Cord blood was collected. The placenta was removed manually and was passed off the field. The uterus was exteriorized and cleared of all clots and debris. The uterine incision was reapproximated using 0 Monocryl in a running, locked fashion. Excellent hemostasis resulted as did excellent reapproximation of the normal anatomy. The uterus was returned the abdomen. The pelvis was irrigated copiously with warmed normal saline. Rigorous hemostasis was assured. The fascial layer was reapproximated using 0 Vicryl in a running fashion. The skin was closed with a running, subcuticular stitch of 4 0 Vicryl. Dermaflex was applied externally. Sponge, lap, needle and instrument counts were correct. The patient was taken to the recovery room in stable condition. The infant went to the nursery in stable condition. I was present and scrubbed the entire procedure. [place] Baby Date of : 12/04/21 Time of : 13:19 Weeks of gestation at delivery: 40 Infant gender: Male Weight (pounds): 6 Weight (ounces): 14 presentation: vertex Placenta delivery description: Manual Removal and Normal Configuration Cord Vessel Description: 3 Vessels and Delayed Cord Clamping score one minute: 7 score five minutes: 9
--- NOTE | 2021-12-04 16:07 | OBPPTRN ---
1603 Patient transferred to post room #283 via stretcher. Support person present. Oriented to unit, room, information board, rooming in, admission packet and security measures. Patient verbalizes understanding.
[2021-12-04] MEDS: KCL 20 MEQ/D5/0.45% SOD CHL 1,000 ML 125 ML IV CONT (17:35)
[2021-12-04] MEDS: KETOROLAC 30 MG/ML VIAL (*BKC) IV PUSH (21:42)
[2021-12-04] MEDS: DOCUSATE SODIUM 100 MG CAPSULE PO (21:42)
[2021-12-05 04:15] VITALS: BP 95/62; PULSE 64; RESP 16; TEMP 37; O2SAT 98
[2021-12-05] MEDS: IBUPROFEN 600 MG TABLET PO ×3 (04:30→19:35)
[2021-12-05 05:06] LABS: Basophils Percent Auto 0.2 % (0.2-1.2); Eosinophils Absolute Auto 0.1 K/mm3 (0-0.3); Eosinophils Percent Auto 1.2 % (0-4.4); Hematocrit 32.2 % (37.0-47.0); Hemoglobin 10.9 g/dL (12.0-15.0); Immature Granulocyte Absolute 0.02 K/mm3 (0.00-0.031); Immature Granulocyte Percent A 0.2 % (0-0.5); Lymphocytes Absolute Auto 2.05 K/mm3 (0.9-3.2); Lymphocytes Percent Auto 23.7 % (18.3-44.2); Mean Corpuscular HGB Conc 33.9 g/dl (32-36); Mean Corpuscular Hemoglobin 31.2 pg (26-34); Mean Corpuscular Volume 92.3 fl (80-100); Mean Platelet Volume 10.8 fl (7.4-10.4); Monocytes Absolute Auto 0.5 K/mm3 (0.1-0.6); Monocytes Percent Auto 5.3 % (2.6-8.5); Neutrophils Percent Auto 69.4 % (45.5-73.1); Platelet Count Result 190 k/mm3 (150-375); Red Blood Count 3.49 M/mm3 (4.2-5.4); Red Cell Distribution Width 13.8 % (11.5-14.5); White Blood Count 8.6 K/mm3 (4.5-10.0)
[2021-12-05 06:50] VITALS: BP 104/67; PULSE 71; RESP 16; TEMP 36.1; O2SAT 98
[2021-12-05] MEDS: LEVOTHYROXINE SODIUM 112 MCG TABLET PO (06:58)
[2021-12-05] MEDS: DOCUSATE SODIUM 100 MG CAPSULE PO ×2 (07:02→16:34)
[2021-12-05] MEDS: SIMETHICONE 80 MG TAB.CHEW PO ×6 (07:02→23:47)
[2021-12-05] MEDS: MULTIVIT/MIN/PREN/FOL AC/IRON TABLET 1 TAB PO (07:02)
--- NOTE | 2021-12-05 08:28 | PM.OBPNVD ---
OB - PN: Subj Subjective Date/time seen: 12/05/21 08:28 Narrative: Pain OK. Tolerating diet. Would like circumcision for son. OB - PN: Obj Data Labs CBC & Chem 7: 12/05/21 04:24 Labs: Laboratory Results - last 24 hr 12/05/21 04:24 WBC 8.6 RBC 3.49 L Hgb 10.9 L Hct 32.2 L MCV 92.3 MCH 31.2 MCHC 33.9 RDW 13.8 Plt Count 190 MPV 10.8 H Immature Gran % (Auto) 0.2 Neut % (Auto) 69.4 Lymph % (Auto) 23.7 [place] % (Auto) 5.3 Eos % (Auto) 1.2 Baso % (Auto) 0.2 Lymph # (Auto) 2.05 [place] # (Auto) 0.5 Eos # (Auto) 0.1 Baso # (Auto) 0.0 Abs Immat Gran (auto) 0.02 Absolute Neuts (auto) 6.0 Absolute Nucleated RBC 0.0 Nucleated RBC % 0.0 OB - PN A/P Plan Comments: A: POD#1, doing well. P: Routine care. Reviewed circ. Exam Narrative: AVSS I/O OK ABD soft, nontender, fundus firm. Incision c/d/i. EXT nontender
--- NOTE | 2021-12-05 08:41 | WPDANLDPN2 ---
Anes-Prog Note L&D Date/Time: 12/05/21 08:41 Comfortable throughout: section Neuraxial method: spinal Epidural/Spinal procedure site: clean & non-tender Neuro status: Neuro function grossly intact. Cardiovascular status: normal Respiratory status: normal Airway patency: baseline Mental status: baseline Post-Op hydration status: normal Vital Signs: Last Vital Signs Temp 37.0 C 12/05/21 04:15 Pulse 64 12/05/21 04:15 Resp 16 12/05/21 04:15 BP 95/62 L 12/05/21 04:15 Pulse Ox 98 12/05/21 04:15 Pain score (VAS): 2 I/O: Intake & Output 12/04/21 12/05/21 12/05/21 23:59 07:59 15:59 Intake Total 760 2000 Output Total 3150 700 Balance -2390 1300 Post-procedural complaints: none Patient feedback: Patient satisfied with anesthetic care.
--- NOTE | 2021-12-05 08:41 | WPDANLDPN2 ---
Anes-Prog Note L&D Date/Time: 12/05/21 08:41 Comfortable throughout: section Neuraxial method: spinal Epidural/Spinal procedure site: clean & non-tender Neuro status: Neuro function grossly intact. Cardiovascular status: normal Respiratory status: normal Airway patency: baseline Mental status: baseline Post-Op hydration status: normal Vital Signs: Last Vital Signs Temp 37.0 C 12/05/21 04:15 Pulse 64 12/05/21 04:15 Resp 16 12/05/21 04:15 BP 95/62 L 12/05/21 04:15 Pulse Ox 98 12/05/21 04:15 Pain score (VAS): 3 I/O: Intake & Output 12/04/21 12/05/21 12/05/21 23:59 07:59 15:59 Intake Total 760 2000 Output Total 3150 700 Balance -2390 1300 Post-procedural complaints: none Patient feedback: Patient satisfied with anesthetic care.
--- NOTE | 2021-12-05 08:42 | WPDANLDNPN2 ---
Anes-Prog Note L&D-Neuraxial Date/Time: 12/05/21 08:42 Neuraxial medications: intrathecal PF morphine Opiod-related complaints: none Patient feedback: Patient satisfied with post-operative pain management.
[2021-12-05] MEDS: ACETAMINOPHEN 325 MG TABLET 650 MG PO (08:44)
--- NOTE | 2021-12-05 09:13 | PC.NURSE ---
On 12/05/21, the student, Nena Eugene, provided care and completed [facility] documentation on this patient. I have reviewed the student's documentation and agree with the findings.
[2021-12-05 11:35] VITALS: BP 107/61; PULSE 69; RESP 16; TEMP 36.3; O2SAT 97
--- NOTE | 2021-12-05 13:39 | PC.NURSE ---
[id number] Report received that infant was well, had circumcision done this A.M., Acetaminophen was administered, and had a large spit up. Introductions were made and RN consulted with patient to assess needs related to . Mother led conversation with her experience with feeding baby so far. Initial assessment shows R nipple has a blister and left areola has a small bruise near the nipple. Mother works well with her but parents state that the infant has been sleepy and difficult to stimulate to eat. Reviewed good handwashing when working with , breast, nipples and how to protect the nipples with a deep latch. Educated mother on hand expressing colostrum and feeding it into infant's mouth and mother demonstrates understanding. Encouraged understanding the benefits of skin to skin, responding to feeding cues for feeding on demand, frequencies of feeding 8-12 times in 24 hours (approximately 2-3 hours), duration of feedings, milk production, intake/output feeding sheet and signs of adequate intake. Discussed stimulating with skin to skin, hand expressing colostrum, touch and talking to to encourage drinking at the breast and not sleepy with positioning. Reviewed positioning and alignment, supporting breast, off-centered (asymmetrical latch) and leading with the chin with big open wide gape. Infant is sleepy and not showing feeding cues at this time. Nipple care, comfort and healing with warm, wet washcloth to rinse breast and leave to air-dry. Colostrum may be left on nipples to dry but have clean hands when touching the nipple/breast. Resources used to facilitate learning were used from the visual handout/ tool/mom and baby guide. Mother voiced understanding responding to feeding cues, may need to stimulating infant approximately 2-3 hours from the start of the last feeding, calling for assistance if the infant does not latch or if there is discomfort . Reported to primary RN.
--- NOTE | 2021-12-05 14:15 | PM.OBDSVD ---
DS: Admitting Diagnosis Discharge Date 12/06/21 Admitting Diagnosis IUP at 40 1/7 weeks Prior DS: Discharge Diagnosis Discharge Diagnosis (1) History of delivery: Code(s): Z98.891 - History of uterine scar from previous surgery Status: Acute (2) Term : Code(s): Z34.90 - Encounter for supervision of normal , unspecified, unspecified trimester Status: Acute OB - DS: Summary OB Procedures : NST and Ultrasound OB Procedures Intrapartum: OB Procedures: : None Peripartum Data Procedures: Procedures Operation Date: 12/04/21 12:00 Actual Procedure Side Surgeon p Repeat Section Not Applicable Madhav Leigh MD DS: Data Data Completed and Pending Labs on day of discharge: Labs from last 24 hours 12/05/21 04:24 WBC 8.6 RBC 3.49 L Hgb 10.9 L Hct 32.2 L MCV 92.3 MCH 31.2 MCHC 33.9 RDW 13.8 Plt Count 190 MPV 10.8 H Immature Gran % (Auto) 0.2 Neut % (Auto) 69.4 Lymph % (Auto) 23.7 [place] % (Auto) 5.3 Eos % (Auto) 1.2 Baso % (Auto) 0.2 Lymph # (Auto) 2.05 [place] # (Auto) 0.5 Eos # (Auto) 0.1 Baso # (Auto) 0.0 Abs Immat Gran (auto) 0.02 Absolute Neuts (auto) 6.0 Absolute Nucleated RBC 0.0 Nucleated RBC % 0.0 Discharge Plan Discharge Attending physician on discharge: Madhav Leigh Discharging Clinician: Madhav Leigh Patient Disposition: Home, Self-Care Activity: may shower, may drive after 2 weeks and pelvic rest Diet: regular Wound Care Instructions: incision open to air Discharge Instructions: Call or return if temperature above 100.4? F, increased abdominal pain, increased vaginal bleeding or any new problems. Stand Alone Forms: General Discharge Information Follow-up/Referrals: Madhav Leigh MD [Physician] - 4 Weeks Discharge Medications: New ibuprofen 600 mg tablet 600 mg PO Q6H PRN (Reason: cramps) Qty: 30 RF: 0 hydrocodone-acetaminophen 5-325 mg tablet 1 - 2 tablet PO Q6H PRN (Reason: pain) Qty: 30 RF: 0 Continued levothyroxine 100 mcg Tablet 112 mcg PO DAILY RF: 0 PNV cmb#95-ferrous fumarate-FA [] 28 mg iron- 800 mcg Tablet 1 tablet PO DAILY RF: 0 Date of admission: 12/04/21 09:38 Primary Care Provider: LoydaRima Admitting Provider: Madhav Leigh Attending physician on admission: Madhav Leigh Condition: Stable
[2021-12-05] MEDS: HYDROcodone/acetaminophen (*CRX) 5-325 MG TABLET 1 TAB PO ×2 (14:40→16:34)
[2021-12-05] MEDS: HYDROcodone/acetaminophen (*CRX) 10-325 MG TABLET 1 TAB PO (19:35)
[2021-12-05 21:00] VITALS: BP 114/68; PULSE 77; RESP 16; TEMP 36.9; O2SAT 96
[2021-12-06] MEDS: HYDROcodone/acetaminophen (*CRX) 5-325 MG TABLET 1 TAB PO ×2 (02:02→07:51)
[2021-12-06] MEDS: SIMETHICONE 80 MG TAB.CHEW PO ×3 (02:02→07:51)
[2021-12-06] MEDS: IBUPROFEN 600 MG TABLET PO ×2 (02:02→07:52)
[2021-12-06] MEDS: LEVOTHYROXINE SODIUM 112 MCG TABLET PO (07:52)
[2021-12-06] MEDS: MULTIVIT/MIN/PREN/FOL AC/IRON TABLET 1 TAB PO (07:52)
[2021-12-06 07:56] VITALS: BP 117/84; PULSE 70; RESP 18; TEMP 37.1
--- NOTE | 2021-12-06 08:30 | PC.NURSE ---
Lactations database consultant here at bedside for discharge teaching. See notes.
--- NOTE | 2021-12-06 09:07 | PM.OBPNVD ---
OB - PN: Subj Subjective Date/time seen: 12/06/21 09:07 Narrative: Pain OK. Tolerating diet. Would like to go home. OB - PN: Obj Data Labs CBC & Chem 7: 12/05/21 04:24 OB - PN A/P Plan Comments: A: POD#2, doing well. P: Home to f/u 4 weeks. Exam Narrative: AVSS ABD soft, nontender, fundus firm. Incision c/d/i. EXT nontender
--- NOTE | 2021-12-06 11:00 | PC.NURSE ---
Self care and infant care discharge instructions given including follow up visit date and time. No questions or concerns verbalized. Very pleasant and cooperative. FOB at side.
--- NOTE | 2021-12-06 14:49 | PC.NURSE ---
0755 - Introductions were made and mother led the conversation with regards to her experience feeding her baby. Reminded parents to use good handwashing to prevent infection. Infant has had appropriate feedings in the past 24 hours and meets the outcomes for weight, output and jaundice. Mother states she feels confident to continue effectively her infant at home. Reviewed production of human milk, transition of milk, signs of adequate intake and engorgement prevention/relief and when to call the care provider using the mom and baby guide. Reviewed community resources and outpatient services as listed in the mom and baby guide/[facility] website. Reinforced watching for feeding cues with responsive feeding and how to stimulate to initiate feeding three hours from the start of the last feeding. Mother voiced understanding of information shared and states she is independently without discomfort. Reported to primary RN.
[2021-12-07 11:18] VITALS: BP 130/82; PULSE 72; RESP 16; TEMP 36.6; O2SAT 98
== END 2021-12-06 11:51 | disposition home or self-care (01) | DRG 788 ==
LOC: ANHLDR 09:44 → ANHOB2 16:24
PROVIDERS: Admitting Provider Obstetrics & Gynecology; PCP Family Medicine; Visit Provider Obstetrics & Gynecology
PROC: 10D00Z1 Extraction of Products of Conception, Low, Open Approach (ICD-10-PCS; CPT 59514; principal; 2021-12-04 12:00)
DX: O34.211 Maternal care for low transverse scar from previous cesarean delivery (principal); Z37.0 Single live birth; Z3A.40 40 weeks gestation of pregnancy; O99.284 Endocrine, nutritional and metabolic diseases complicating childbirth; E03.9 Hypothyroidism, unspecified
CPT/HCPCS: 36415; 85025; A9270; J0131; J0690; J1885; J2274; J2370; J2405; J2590; J3480; J7120